=== PATIENT | male | born 2000 | race Caucasian/White ===

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

== ENCOUNTER 2018-02-21 17:18 | Emergency (ER) | payer SELFPAY ==
[~2018-02-21] VITALS: Ht 172.7 cm; Wt 69.4 kg
[2018-02-21 17:25] VITALS: Ht 172.7 cm; Wt 69.4 kg
[2018-02-21 18:57] VITALS: BP 119/69
== END 2018-02-21 18:57 | disposition home or self-care (01) ==
LOC: ED 17:18
DX: T78.1XXA Other adverse food reactions, not elsewhere classified, initial encounter (principal); X58.XXXA Exposure to other specified factors, initial encounter
CPT/HCPCS: J7512; Q0163

== ENCOUNTER 2018-02-22 08:54 | Emergency (ER) | payer SELFPAY ==
[~2018-02-22] VITALS: Ht 172.7 cm; Wt 68.0 kg
[2018-02-22 09:21] VITALS: BP 133/81; Ht 172.7 cm; Wt 68.0 kg
== END 2018-02-22 11:20 | disposition home or self-care (01) ==
LOC: ED 08:54
DX: L50.9 Urticaria, unspecified (principal)
CPT/HCPCS: J1200; J7512